=== PATIENT | female | born 1945 | race Caucasian/White ===

== ENCOUNTER 2017-09-16 08:53 | Day surgery (SDC) | payer MEDICARE, BC ==
[~2017-09-16] VITALS: Ht 165.1 cm; Wt 73.6 kg
[~2017-09-16 08:53] MED LIST: ASPI81CH PO; CITA20 PO; LISINOPRIL PO; MAGNESIUM250 MG PO; PRAV10 PO; PRAV20 PO; RANI150 PO; [UNRECOGNIZED DRUG - OTHER] PO
== END 2017-09-16 10:56 | disposition home or self-care (01) ==
LOC: ORSCSDS 08:53
PROVIDERS: Surgery
PROC: 0DJD8ZZ Inspection of Lower Intestinal Tract, Via Natural or Artificial Opening Endoscopic (ICD-10-PCS; principal; 2017-09-16 10:15)
DX: Z12.11 Encounter for screening for malignant neoplasm of colon (principal); K57.30 Diverticulosis of large intestine without perforation or abscess without bleeding; Z80.0 Family history of malignant neoplasm of digestive organs; E78.5 Hyperlipidemia, unspecified; I10 Essential (primary) hypertension; Z86.010 Personal history of colon polyps; Z79.899 Other long term (current) drug therapy
CPT/HCPCS: J7120

== ENCOUNTER 2019-03-24 18:18 | Emergency (ER) | payer MEDICARE, BC ==
[~2019-03-24] VITALS: Ht 165.1 cm; Wt 72.6 kg
[~2019-03-24 18:18] MED LIST changes: -LISINOPRIL PO; +Lisinopril2.5 MG PO; -PRAV10 PO
[2019-03-24 19:03] LABS: BASOPHILS ABSOLUTE AUTO 0.01 K/mm3 (0.00-0.23); BASOPHILS PERCENT AUTO 0 % (0-2); EOSINOPHILS ABSOLUTE AUTO 0.01 K/mm3 (0.00-0.68); EOSINOPHILS PERCENT AUTO 0 % (0-6); Hematocrit 37.6 % (33.0-51.0); Hemoglobin 12.1 g/dL (11.5-16.0); IMMATURE GRAN ABSOLUTE AUTO 0.04 K/mm3 (0.00-0.10); IMMATURE GRAN PERCENT AUTO 1 % (0-1); LYMPHOCYTES ABSOLUTE AUTO 1.84 K/mm3 (0.84-5.20); LYMPHOCYTES PERCENT AUTO 35 % (21-46); MONOCYTES ABSOLUTE AUTO 0.47 K/mm3 (0.16-1.47); MONOCYTES PERCENT AUTO 9 % (4-13); Mean Corpuscular HGB 27.6 pg (26.0-34.0); Mean Corpuscular HGB Conc 32.2 g/dL (31.5-36.5); Mean Corpuscular Volume 86 fL (80-100); NEUTROPHILS PERCENT AUTO 55 % (41-73); Platelet Count 108 K/mm3 (150-400); RDW Coefficient Variation 13.8 % (11.7-14.2); RDW Standard Deviation 42.8 fL (35.1-46.3); Red Blood Cell Count 4.38 M/mm3 (3.80-5.20); White Blood Cell Count 5.27 K/mm3 (4.00-11.30)
[2019-03-24 19:15] LABS: Alanine Aminotransfer (ALT/SGP 16 U/L (12-78); Albumin/Globulin Ratio 1.2 (0.8-1.8); Alk Phos 49 U/L (50-136); Anion Gap 5 mmol/L (6-16); Aspartate Aminotrans (AST/SGOT 12 U/L (12-37); Bilirubin, Total 0.5 mg/dL (0.1-1.0); Blood Urea Nitrogen 19 mg/dL (8-24); Bun/Creatinine Ratio 21.6 (12.0-20.0); CO2, Blood 27 mmol/L (21-32); Calcium, Blood 9.3 mg/dL (8.5-10.1); Chloride, Blood 107 mmol/L (98-108); Creatinine, Blood 0.88 mg/dL (0.40-1.00); Globulin, Blood 3.2 g/dL (2.2-4.0); Glomerular Filtration Rate >60 (60-); Glucose, Blood 111 mg/dL (70-99); Potassium, Blood 3.5 mmol/L (3.5-5.5); Sodium, Blood 139 mmol/L (136-145); Total Protein, Blood 7.2 g/dL (6.4-8.2); Troponin I <0.015 ng/mL (0.000-0.040)
[2019-03-24] MEDS ORDERED: OMEPRAZOLE20 MG PO (20:14)
== END 2019-03-24 22:30 | disposition home or self-care (01) ==
LOC: ER 18:18
PROVIDERS: Physician Assistant
DX: R55 Syncope and collapse (principal); I10 Essential (primary) hypertension; Z88.2 Allergy status to sulfonamides; Z88.8 Allergy status to other drugs, medicaments and biological substances; Z79.899 Other long term (current) drug therapy; K21.9 Gastro-esophageal reflux disease without esophagitis; R07.89 Other chest pain
CPT/HCPCS: 36415; 71046; 80053; 84484; 85025; 93005; 93010; 96361; 96374; 99284-25; J7030

== ENCOUNTER → 2019-04-28 | Outpatient (CLI) | payer MEDICARE, BC ==
[~2019-04-28] MED LIST changes: +OMEPRAZOLE20 MG PO
== END | disposition home or self-care (01) ==
LOC: LAB SHORT 15:46 → LAB EV 15:46
DX: N39.0 Urinary tract infection, site not specified (principal)
CPT/HCPCS: 87077; 87086; 87186

== ENCOUNTER → 2019-08-08 | Outpatient (CLI) | payer MEDICARE, BC ==
[2019-08-08 15:44] LABS: BASOPHILS ABSOLUTE AUTO 0.02 K/mm3 (0.00-0.23); BASOPHILS PERCENT AUTO 0 % (0-2); EOSINOPHILS ABSOLUTE AUTO 0.01 K/mm3 (0.00-0.68); EOSINOPHILS PERCENT AUTO 0 % (0-6); Hematocrit 37.8 % (33.0-51.0); Hemoglobin 12.2 g/dL (11.5-16.0); IMMATURE GRAN ABSOLUTE AUTO 0.02 K/mm3 (0.00-0.10); IMMATURE GRAN PERCENT AUTO 0 % (0-1); LYMPHOCYTES ABSOLUTE AUTO 2.17 K/mm3 (0.84-5.20); LYMPHOCYTES PERCENT AUTO 48 % (21-46); MONOCYTES ABSOLUTE AUTO 0.47 K/mm3 (0.16-1.47); MONOCYTES PERCENT AUTO 10 % (4-13); Mean Corpuscular HGB 26.7 pg (26.0-34.0); Mean Corpuscular HGB Conc 32.3 g/dL (31.5-36.5); Mean Corpuscular Volume 83 fL (80-100); NEUTROPHILS ABSOLUTE AUTO 1.87 K/mm3 (1.96-9.15); NEUTROPHILS PERCENT AUTO 41 % (41-73); RDW Coefficient Variation 14.2 % (11.7-14.2); RDW Standard Deviation 42.2 fL (35.1-46.3); Red Blood Cell Count 4.57 M/mm3 (3.80-5.20); White Blood Cell Count 4.56 K/mm3 (4.00-11.30)
[2019-08-08 15:56] LABS: Alanine Aminotransfer (ALT/SGP 17 U/L (12-78); Albumin/Globulin Ratio 1.1 (0.8-1.8); Alk Phos 55 U/L (40-126); Anion Gap 9 mmol/L (6-16); Aspartate Aminotrans (AST/SGOT 18 U/L (12-37); Bilirubin, Total 0.4 mg/dL (0.1-1.0); Blood Urea Nitrogen 17 mg/dL (8-24); Bun/Creatinine Ratio 18.3 (12.0-20.0); CO2, Blood 25 mmol/L (21-32); CPK Creatine Kinase 106 U/L (26-192); Calcium, Blood 9.2 mg/dL (8.5-10.1); Chloride, Blood 106 mmol/L (98-108); Creatinine, Blood 0.93 mg/dL (0.40-1.00); Globulin, Blood 3.6 g/dL (2.2-4.0); Glomerular Filtration Rate 59 (60-); Glucose, Blood 114 mg/dL (70-99); Potassium, Blood 3.6 mmol/L (3.5-5.5); Sodium, Blood 140 mmol/L (136-145); Total Protein, Blood 7.6 g/dL (6.4-8.2)
[2019-08-08 15:57] LABS: Troponin I <0.017 ng/mL (0.000-0.040)
[2019-08-08 16:34] LABS: Mean Platelet Volume 14.9 fL (9.1-12.4); Platelet Count 123 K/mm3 (150-400)
== END | disposition home or self-care (01) ==
LOC: LAB EV 15:37 → LAB SHORT 15:37
PROVIDERS: General Practice
DX: I10 Essential (primary) hypertension (principal)
CPT/HCPCS: 80053; 82550; 84484; 85025; 85379

== ENCOUNTER → 2019-08-17 | Outpatient (CLI) | payer MEDICARE, BC | END | disposition home or self-care (01) | LOC: LAB SHORT 07:50 → PLD 07:50 | DX: D22.4 Melanocytic nevi of scalp and neck (principal) | CPT/HCPCS: 88305 ==

== ENCOUNTER → 2020-08-24 | Outpatient (CLI) | payer MEDICARE, BC | END | disposition home or self-care (01) | LOC: LAB SHORT 14:45 → LAB 14:45 | DX: D47.3 Essential (hemorrhagic) thrombocythemia (principal); D70.9 Neutropenia, unspecified; E53.8 Deficiency of other specified B group vitamins; R76.8 Other specified abnormal immunological findings in serum; Z72.53 High risk bisexual behavior | CPT/HCPCS: 82607; 82746; 86803 ==

== ENCOUNTER → 2022-01-15 | Outpatient (CLI) | payer MEDICARE, BC ==
[2022-01-15 20:28] LABS: Percent Saturation 23.2 % (15.0-50.0)
== END | disposition home or self-care (01) ==
LOC: LAB SHORT 11:38 → LAB 11:38
PROVIDERS: Internal Medicine Hematology & Oncology
DX: D46.9 Myelodysplastic syndrome, unspecified (principal)
CPT/HCPCS: 82728; 83540; 83550

== ENCOUNTER → 2022-09-19 | Outpatient (CLI) | payer MEDICARE, BC | END | disposition home or self-care (01) | LOC: LAB SHORT 16:57 | DX: E53.8 Deficiency of other specified B group vitamins (principal) | CPT/HCPCS: 82607; 82746 ==

== ENCOUNTER 2022-11-04 15:31 | Inpatient (IN) | payer MEDICARE, BC ==
[~2022-11-04] VITALS: Ht 165.1 cm; Wt 73.5 kg
[2022-11-04] VITALS (12 sets, daily range): BP systolic 83–170; BP diastolic 64–123
[~2022-11-04 15:31] MED LIST changes: -BUDESONIDE-FO10.2 G3 INH; -CARVEDILOL3.125 MG PO; -FAMO10; -FURO20 PO; -GUAI600T33 PO; -HIGH POTENCY P1 EAC2 PO; -IRBESARTAN150 M3 PO; -LEVFLO500 PO; -PRAV20; -SPIR25 PO
[2022-11-04 16:55] LABS: Prothrombin Time Results 10.5 Sec (9.7-11.5)
[2022-11-04 17:27] LABS: Anti-Xa UFH, PHA Monitoring <0.10 IU/mL
[2022-11-04] MEDS ORDERED: IRBESARTAN150 M3 PO (17:32)
[2022-11-04] MEDS ORDERED: PRAV20 (17:32)
[2022-11-04] MEDS ORDERED: CARVEDILOL3.125 MG PO (17:33)
[2022-11-04] MEDS ORDERED: FAMO10 (17:33)
--- NOTE | 2022-11-04 20:00 | NUR ---
ARRIVAL TO [facility] PT ARRIVED PT [facility] AT APPROXIMATELY 1950. PT TRANSFERED FROM [facility] TO HOSPITAL BED WITH SBA. PT AMBULATED TO [facility] SBA AND POLE MANAGEMENT, CONTINENT OF URINE. PT ARRIVED ON RA, SpO2 87%, PT DENIED SOB. PLACED PT ON 3L VIA NC, SpO2> 92%. BP STABLE, PT ONLY REPORTED MILD CP/SOB WHEN AMBULATING TO BATHROOM, SUBSIDED WITHOUT INTERVENTION, SpO2 REMAINED> 92%. SR-ST 90-100's. LUNGS COARSE AND WHEEZEY THROUGHOUT, REQUESTED BREATHING TREATMENT FROM RT. PT A&Ox4, COMMUNCIATES NEEDS APPROPRIATELY, ORIENTED TO CALL LIGHT/UNIT, BED IN LOWEST POSTION, CALL LIGHT IN REACH.
--- NOTE | 2022-11-04 21:30 | NUR ---
UPDATE AT APPROXIMATELY 2130, SpO2 BEGAN DROPPING, INCREASED O2 FLOW, CALLED RT. SpO2 NOT RESPONDING, RR AND WORK OF BREATHING ELEVATED, PT DIAPHORETIC. INCREASED TO 15L HIGH FLOW NC, SpO2 DROPPING TO 77%, PLACED NRB OVER 15L HIGH FLOW NC. PT DENIES CP/PRESSURE, BP ELEVATED WITH SBP 160-170's, SINUS TACH 120's. RT AND PHYSICIANS AT BEDSIDE. INSTRUCTED TO STOP FLUIDS. ORDERS PLACED. RT SETTING UP V60 BIPAP. SpO2> 92% AFTER PT PUT ON BIPAP.
[2022-11-04 21:46] LABS: PCO2 Arterial 41.1 mmHg (35-45); PO2 Arterial 86.2 mmHg (80-100)
[2022-11-04 21:47] LABS: pH Blood Arterial 7.27 (7.35-7.45)
[2022-11-05] VITALS (37 sets, daily range): BP systolic 71–128; BP diastolic 52–113
--- NOTE | 2022-11-05 01:30 | NUR ---
UPDATE PT's MAP 60's, PT VERY LETHARGIC, AND RETAINING URINE. NOTIFIED PHYSICIAN, ORDERS PLACED. PHYSICIAN INSTRUCTED TO PLACE INDWELLING OSPINA CATH RATHER THAN STRAIGHT CATH D/T PT STATUS.
[2022-11-05 01:59] LABS: Source, Urine Foley catheter
[2022-11-05 02:07] LABS: Appearance, Urine Clear (Clear); Bilirubin, Urine Neg (Neg); Blood, Urine 1+ (Neg); Color, Urine Yellow (P-Yellow); Glucose Qualitative, Urine 1+ (Neg); Ketones, Urine Neg (Neg); Leukocyte Esterase, Urine Neg (Neg); Nitrite, Urine Neg (Neg); Protein, Urine Neg (Neg); Urobilinogen, Urine NORM (Normal)
[2022-11-05 02:24] LABS: Bacteria Rare /hpf; Red Blood Cells, Urine 0-2 /hpf (0-2); Squamous Epithelial Cells Rare /hpf (Few); White Blood Cells, Urine 0-2 /hpf (0-5)
[2022-11-05 02:34] LABS: PCO2 Arterial 36.3 mmHg (35-45); PO2 Arterial 105 mmHg (80-100); pH Blood Arterial 7.39 (7.35-7.45)
[2022-11-05 02:38] LABS: BASOPHILS ABSOLUTE AUTO 0.01 K/mm3 (0.00-0.23); BASOPHILS PERCENT AUTO 0 % (0-2); EOSINOPHILS ABSOLUTE AUTO 0.01 K/mm3 (0.00-0.68); EOSINOPHILS PERCENT AUTO 0 % (0-6); Hematocrit 38.5 % (33.0-51.0); Hemoglobin 12.6 g/dL (11.5-16.0); IMMATURE GRAN ABSOLUTE AUTO 0.02 K/mm3 (0.00-0.10); IMMATURE GRAN PERCENT AUTO 0 % (0-1); LYMPHOCYTES ABSOLUTE AUTO 1.05 K/mm3 (0.84-5.20); LYMPHOCYTES PERCENT AUTO 16 % (21-46); MONOCYTES ABSOLUTE AUTO 0.19 K/mm3 (0.16-1.47); MONOCYTES PERCENT AUTO 3 % (4-13); Mean Corpuscular HGB Conc 32.7 g/dL (31.5-36.5); Mean Corpuscular Volume 82 fL (80-100); NEUTROPHILS ABSOLUTE AUTO 5.22 K/mm3 (1.96-9.15); NEUTROPHILS PERCENT AUTO 80 % (41-73); Platelet Count 87 K/mm3 (150-400); RDW Standard Deviation 41.9 fL (35.1-46.3); Red Blood Cell Count 4.67 M/mm3 (3.80-5.20)
[2022-11-05 02:52] LABS: Mean Platelet Volume 14.9 fL (9.1-12.4)
[2022-11-05 03:07] LABS: Albumin, Blood 2.9 g/dL (3.4-5.0); Albumin/Globulin Ratio 0.9 (0.8-1.8); Bilirubin, Total 0.6 mg/dL (0.1-1.0); Bun/Creatinine Ratio 24.4 (12.0-20.0); Calcium, Blood 7.9 mg/dL (8.5-10.1); Creatinine, Blood 0.82 mg/dL (0.40-1.00); Globulin, Blood 3.2 g/dL (2.2-4.0); Magnesium, Blood 2.3 mg/dL (1.6-2.4); Phosphorus, Blood 2.2 mg/dL (2.5-4.9); Potassium, Blood 3.5 mmol/L (3.5-5.5); Total Protein, Blood 6.1 g/dL (6.4-8.2)
--- NOTE | 2022-11-05 05:49 | NUR ---
SHIFT SUMMARY SEE PREVIOUS NOTES. PT A&Ox4, VERY LETHARGIC. OPENS EYES TO VERBAL STIMULI OR TOUCH, WILL ANSWER SIMPLE QUESTIONS AND FALL BACK ASLEEP. BP SOFT WITH SBP 80's, MAP 65-70. PHYSICIAN AWARE, ASSESSED PT AT BEDSIDE AFTER BEING NOTIFIED OF SOFT BP AND LETHARGY, NO NEW ORDERS. SpO2> 92% ON BIPAP 14/8 30% FiO2. SINUS 70's. HEPARIN gtt @ 14units/hr. OSPINA CATH IN PLACE PER PHYSICIAN ORDER, PATENT, DRAINING CLEAR/PALE YELLOW URINE TO GRAVITY. NO OTHER EVENTS, WILL REPORT TO ONCOMING RN.
--- NOTE | 2022-11-05 11:58 | NUR ---
"Spiritual Care | Pt. Request Pt. is sitting up in a recliner when she welcomes my visit. Pt. is pleasant and is only slightly unsettled about the results of tests on her heart. Pt. verbalizes an expectation of having results from an angiogram tomorrow. Facilitated a substantial life review, with a focus on Pts. symptoms leading to her hospital admission. Listen with interest and empathy and establish rapport. Pt. verbalized gratitude for the spiritual care visit and displays evidence of engagement and awareness. Pt. welcomed this bed control specialist to return."
--- NOTE | 2022-11-05 17:42 | NUR ---
SHIFT SUMMARY; ASSUMED CARE AT 0700. ON BIPAP AT START OF SHIFT. ARROUSABLE TO VOICE, ANSWERS QUESTIONS. BIPAP REMOVED AND PLACED ON 4L 02 VIA NC TITRATED DOWN TO 1L WITH MAINTAINING SATS OF 94%. A/A/OX4 FOR REMAINDER OF SHIFT. UP TO CHAIR IN ROOM WITH SBA. HEPARIN INFUSING AT 10UNITS/KG. CARDIOLOGY CONSULT IN PM, WILL PLAN FOR ANGIO TONIGHT, TO REMAIN NPO. WILL CONTINUE TO MONITOR AND TREAT UNTIL CHANGE OF SHIFT.
--- NOTE | 2022-11-05 19:30 | NUR ---
BACK FROM [facility] PT BACK FROM [facility] AT APPROXIMATELY 1930. RECEIVED REPORT FROM [facility] RN AT BEDSIDE. ASSESSED R RADIAL SITE WITH [facility] RN. TR BAND AND ARMBOARD IN PLACE. SMALL, MILD FIRMNESS DIRECTED DISTAL FROM TR BAND. PT DENIES TENDERNESS. NO BRUISING OR BLEEDING. SpO2> 92% ON R INDEX FINGER, RA. VSS.
[2022-11-06] VITALS (11 sets, daily range): BP systolic 82–147; BP diastolic 52–73
--- NOTE | 2022-11-06 00:20 | NUR ---
TR BAND RECOVERY REPORT [facility] RN THAT 10mLs PUT IN TR BAND AT 1910. BEGAN DEFLATING TR BAND AT 2114. SMALL, MILD FIRMNESS DIRECTED DISTAL FROM TR BAND. PT DENIES TENDERNESS. NO BRUISING OR BLEEDING. SpO2> 92% ON R INDEX FINGER, RA. 1mL REMOVED @ 2114: SMALL, MILD FIRMNESS DIRECTED DISTAL FROM TR BAND, UNCHANGED. PT DENIES TENDERNESS. NO BRUISING OR BLEEDING. SpO2> 92% ON R INDEX FINGER, RA. ARM BOARD IN PLACE. 1mL REMOVED @ 2134: SMALL, MILD FIRMNESS DIRECTED DISTAL FROM TR BAND, UNCHANGED. PT DENIES TENDERNESS. NO BRUISING OR BLEEDING. SpO2> 92% ON R INDEX FINGER, RA. ARM BOARD IN PLACE. 1mL REMOVED @ 2149: SMALL, MILD FIRMNESS DIRECTED DISTAL FROM TR BAND, UNCHANGED. PT DENIES TENDERNESS. NO BRUISING OR BLEEDING. SpO2> 92% ON R INDEX FINGER, RA. ARM BOARD IN PLACE. 1mL REMOVED @ 2210: SMALL, MILD FIRMNESS DIRECTED DISTAL FROM TR BAND, UNCHANGED. PT DENIES TENDERNESS. NO BRUISING OR BLEEDING. SpO2> 92% ON R INDEX FINGER, RA. ARM BOARD IN PLACE. 1mL REMOVED @ 2225: SMALL, MILD FIRMNESS DIRECTED DISTAL FROM TR BAND, UNCHANGED. PT DENIES TENDERNESS. NO BRUISING OR BLEEDING. SpO2> 92% ON R INDEX FINGER, RA. ARM BOARD IN PLACE. 1mL REMOVED @ 2240: SMALL, MILD FIRMNESS DIRECTED DISTAL FROM TR BAND, UNCHANGED. PT DENIES TENDERNESS. NO BRUISING OR BLEEDING. SpO2> 92% ON R INDEX FINGER, RA. ARM BOARD IN PLACE. 1mL REMOVED @ 2255: SMALL, MILD FIRMNESS DIRECTED DISTAL FROM TR BAND, UNCHANGED. PT DENIES TENDERNESS. NO BRUISING OR BLEEDING. SpO2> 92% ON R INDEX FINGER, RA. ARM BOARD IN PLACE. 1mL REMOVED @ 2315: SMALL, MILD FIRMNESS DIRECTED DISTAL FROM TR BAND, UNCHANGED. PT DENIES TENDERNESS. NO BRUISING OR BLEEDING. SpO2> 92% ON R INDEX FINGER, RA. BAND NOW EMPTY AFTER REMOVING A TOTAL OF 8mLs. ARM BOARD IN PLACE. REMOVED TR BAND AT 0015. FIRMNESS REMAINED UNCHANGED. NO BRUISING OR BLEEDING. PT DENIES TENDERNESS. CLEANED SITE WITH CHLORHEXIDINE, APPLIED SKIN PREP AND TEGADERM. ARM BOARD IN PLACE.
--- NOTE | 2022-11-06 05:29 | NUR ---
SHIFT SUMMARY SEE PREVIOUS NOTES. PT A&Ox4, CALLS AND COMMUNICATES NEEDS APPROPRIATELY. BP SOFT, ASYMPTOMATIC, SINUS 70's, DENIES CP/PRESSURE. SpO2> 92% RA, DENIES SOB. R RADIAL SITE REMAINS UNCHANGED. OSPINA CATH IN PLACE, PATENT, DRAINING TO GRAVITY. 1 ASSIST FOR TRANSFERS. NO OTHER EVENTS, WILL REPORT TO ON COMING RN.
[2022-11-06 08:33] LABS: BASOPHILS PERCENT AUTO 0 % (0-2); EOSINOPHILS PERCENT AUTO 0 % (0-6); Hematocrit 31.2 % (33.0-51.0); Hemoglobin 10.5 g/dL (11.5-16.0); IMMATURE GRAN ABSOLUTE AUTO 0.06 K/mm3 (0.00-0.10); IMMATURE GRAN PERCENT AUTO 1 % (0-1); LYMPHOCYTES ABSOLUTE AUTO 1.14 K/mm3 (0.84-5.20); LYMPHOCYTES PERCENT AUTO 11 % (21-46); MONOCYTES ABSOLUTE AUTO 0.44 K/mm3 (0.16-1.47); MONOCYTES PERCENT AUTO 4 % (4-13); Mean Corpuscular HGB 27.7 pg (26.0-34.0); Mean Corpuscular HGB Conc 33.7 g/dL (31.5-36.5); Mean Corpuscular Volume 82 fL (80-100); NEUTROPHILS ABSOLUTE AUTO 8.61 K/mm3 (1.96-9.15); NEUTROPHILS PERCENT AUTO 84 % (41-73); Platelet Count 89 K/mm3 (150-400); RDW Coefficient Variation 14.3 % (11.7-14.2); RDW Standard Deviation 42.5 fL (35.1-46.3); Red Blood Cell Count 3.79 M/mm3 (3.80-5.20); White Blood Cell Count 10.25 K/mm3 (4.00-11.30)
[2022-11-06 08:40] LABS: Bun/Creatinine Ratio 33.3 (12.0-20.0); Creatinine, Blood 0.81 mg/dL (0.40-1.00); Potassium, Blood 3.8 mmol/L (3.5-5.5)
--- NOTE | 2022-11-06 16:06 | NUR ---
THIS NURSE IS ASSUMING CARE NOW AFTER RECIEVEING REPORT FROM JANNA MOONEY IN PCU. PATIENT WAS WHEELCHAIRED OVER FROM PCU WITH HER PERSONAL ITEMS. PATIENT WAS AN SBA FROM WHEELCHAIR TO BED. PATIENT IS LAYING IN BED WITH CALL LIGHT IN REACH.
[2022-11-06 17:33] LABS: Influenza A, PCR NEGATIVE (NEGATIVE); Influenza B, PCR NEGATIVE (NEGATIVE); Resp Syncytial Virus, PCR NEGATIVE (NEGATIVE); SARS-Cov-2 (COVID-19) PCR, MMC NEGATIVE (NEGATIVE)
[2022-11-06 17:44] LABS: Source, Urine Clean Catch
[2022-11-06 17:50] LABS: Appearance, Urine Clear (Clear); Bilirubin, Urine Neg (Neg); Blood, Urine Neg (Neg); Glucose Qualitative, Urine Neg (Neg); Ketones, Urine Neg (Neg); Leukocyte Esterase, Urine Neg (Neg); Nitrite, Urine Neg (Neg); Protein, Urine Neg (Neg); Specific Gravity, Urine 1.015 (1.003-1.022); Urobilinogen, Urine NORM (Normal)
[2022-11-06 17:59] LABS: Color, Urine Pale Yellow (P-Yellow)
--- NOTE | 2022-11-07 04:21 | NUR ---
SUMMARY PATIENT IS AOX4, PLEASANT AND COOPERATIVE. REPORTS NO CHEST PAIN THIS SHIFT. R RADIAL SITE WNL. TELE IN PLACE WITH SR @79. VOIDING WITH SBA TO BATHROOM. CALLS APPROPRIATELY. AWAITING POSSIBLE PULMONOLOGY CONSULT PER DR. HERNANDEZ NOTE. WILL REPORT TO DAY RN.
[2022-11-07 04:39] VITALS: BP 137/76
[2022-11-07 05:15] LABS: BASOPHILS ABSOLUTE AUTO 0.01 K/mm3 (0.00-0.23); BASOPHILS PERCENT AUTO 0 % (0-2); EOSINOPHILS PERCENT AUTO 0 % (0-6); Hematocrit 31.1 % (33.0-51.0); Hemoglobin 10.3 g/dL (11.5-16.0); IMMATURE GRAN ABSOLUTE AUTO 0.11 K/mm3 (0.00-0.10); IMMATURE GRAN PERCENT AUTO 1 % (0-1); LYMPHOCYTES ABSOLUTE AUTO 1.06 K/mm3 (0.84-5.20); LYMPHOCYTES PERCENT AUTO 10 % (21-46); MONOCYTES ABSOLUTE AUTO 0.36 K/mm3 (0.16-1.47); MONOCYTES PERCENT AUTO 3 % (4-13); Mean Corpuscular HGB 27.1 pg (26.0-34.0); Mean Corpuscular HGB Conc 33.1 g/dL (31.5-36.5); Mean Corpuscular Volume 82 fL (80-100); NEUTROPHILS ABSOLUTE AUTO 9.31 K/mm3 (1.96-9.15); NEUTROPHILS PERCENT AUTO 86 % (41-73); Platelet Count 96 K/mm3 (150-400); RDW Coefficient Variation 14.4 % (11.7-14.2); RDW Standard Deviation 41.7 fL (35.1-46.3); White Blood Cell Count 10.85 K/mm3 (4.00-11.30)
[2022-11-07 05:35] LABS: Alanine Aminotransfer (ALT/SGP 18 U/L (12-78); Albumin, Blood 2.9 g/dL (3.4-5.0); Alk Phos 40 U/L (50-136); Anion Gap 6 mmol/L (6-16); Aspartate Aminotrans (AST/SGOT 21 U/L (12-37); Bilirubin, Total 0.4 mg/dL (0.1-1.0); Blood Urea Nitrogen 37 mg/dL (8-24); Bun/Creatinine Ratio 38.7 (12.0-20.0); C-REACTIVE PROTEIN, EXT RANGE <0.290 mg/dL (0.000-0.300); CO2, Blood 25 mmol/L (21-32); Calcium, Blood 8.2 mg/dL (8.5-10.1); Chloride, Blood 111 mmol/L (98-108); Creatinine, Blood 0.96 mg/dL (0.40-1.00); Globulin, Blood 2.9 g/dL (2.2-4.0); Glomerular Filtration Rate 61 (60-); Glucose, Blood 159 mg/dL (70-99); Potassium, Blood 3.7 mmol/L (3.5-5.5); Sodium, Blood 142 mmol/L (136-145); Total Protein, Blood 5.8 g/dL (6.4-8.2)
[2022-11-07 07:12] VITALS: BP 133/76
[2022-11-07] MEDS ORDERED: PRAV20 PO (09:19)
[2022-11-07] MEDS ORDERED: ASPI81CH PO (09:20)
[2022-11-07] MEDS ORDERED: GUAI600T33 PO (09:21)
[2022-11-07] MEDS ORDERED: HIGH POTENCY P1 EAC2 PO (09:22)
[2022-11-07] MEDS ORDERED: BUDESONIDE-FO10.2 G3 INH (09:25)
[2022-11-07] MEDS ORDERED: FURO20 PO (09:26)
[2022-11-07] MEDS ORDERED: LEVFLO500 PO (09:28)
[2022-11-07] MEDS ORDERED: SPIR25 PO (09:29)
--- NOTE | 2022-11-07 14:52 | NUR ---
DISCHARGE SUMMARY S/P NSTEMI, A/OX4, VSS, TOLERATING PO, INDEPENDENT IN THE ROOM. DISCUSSED DISCHARGE INSTRUCTIONS WITH THE PATIENT INCLUDING HOME CARE, MEDICATIONS, AND FOLLOW UP APPOINTMENTS, IV ACCESS REMOVED AND NO OTHER DEVICES IN PLACE AT TIME OF DISCHARGE. PATIENT ESCORTED OUT VIA WC TO PRIVATE AUTO TO GO HOME.
== END 2022-11-07 10:00 | disposition home or self-care (01) | DRG 194 ==
LOC: ER 15:31 → SURS 17:37 → PCU 17:37 → SURS 11-06 16:05
PROVIDERS: Internal Medicine; Nurse Practitioner Acute Care; Student in an Organized Health Care Education/Training Program; ADMIT Hospitalist
PROC: 4A033R1 Measurement of Arterial Saturation, Peripheral, Percutaneous Approach (ICD-10-PCS; principal; 2022-11-05)
PROC: 4A023N7 Measurement of Cardiac Sampling and Pressure, Left Heart, Percutaneous Approach (ICD-10-PCS; 2022-11-05)
PROC: B2151ZZ Fluoroscopy of Left Heart using Low Osmolar Contrast (ICD-10-PCS; 2022-11-05)
DX: J18.0 Bronchopneumonia, unspecified organism (principal); E87.20 Acidosis, unspecified; N17.9 Acute kidney failure, unspecified; I24.8 Other forms of acute ischemic heart disease; E78.5 Hyperlipidemia, unspecified; R79.89 Other specified abnormal findings of blood chemistry; I10 Essential (primary) hypertension; H53.2 Diplopia; K21.9 Gastro-esophageal reflux disease without esophagitis; H81.10 Benign paroxysmal vertigo, unspecified ear; J40 Bronchitis, not specified as acute or chronic; D69.6 Thrombocytopenia, unspecified; D72.819 Decreased white blood cell count, unspecified; D64.9 Anemia, unspecified; Z20.822 Contact with and (suspected) exposure to COVID-19; J30.9 Allergic rhinitis, unspecified; M50.30 Other cervical disc degeneration, unspecified cervical region; Z90.49 Acquired absence of other specified parts of digestive tract; Z98.890 Other specified postprocedural states; Z98.41 Cataract extraction status, right eye; Z90.12 Acquired absence of left breast and nipple; Z88.2 Allergy status to sulfonamides; Z88.8 Allergy status to other drugs, medicaments and biological substances; Z79.899 Other long term (current) drug therapy
CPT/HCPCS: 0241U; 36415; 36600; 71045; 71260; 76937; 80048; 80053; 81001; 81003; 82803; 83735; 83880; 84100; 84145; 84484; 85025; 85520; 85610; 85651; 85730; 86140; 93005; 93010; 93458; 93880; 93970; 94640; 94660; 94664; 94760; 94762; 96365; 96375; 97116; 97162; 99152; 99153; 99285-25; A9270; C1769; C1887; C8929; J0456; J0696; J1644; J1940; J2250; J2920; J2930; J3010; J3475; J7030; J7040; J7050; Q9957; Q9967

== ENCOUNTER → 2022-11-04 | Outpatient (CLI) | payer MEDICARE, BC ==
[~2022-11-04] MED LIST changes: +BUDESONIDE-FO10.2 G3 INH; +CARVEDILOL3.125 MG PO; +FAMO10; +FURO20 PO; +GUAI600T33 PO; +HIGH POTENCY P1 EAC2 PO; +IRBESARTAN150 M3 PO; +LEVFLO500 PO; +PRAV20; +SPIR25 PO
[2022-11-04 14:44] LABS: Albumin, Blood 3.6 g/dL (3.4-5.0); Bilirubin, Total 0.8 mg/dL (0.1-1.0); Bun/Creatinine Ratio 22.2 (12.0-20.0); Creatinine, Blood 1.08 mg/dL (0.40-1.00); Globulin, Blood 3.6 g/dL (2.2-4.0); Potassium, Blood 3.9 mmol/L (3.5-5.5); Total Protein, Blood 7.2 g/dL (6.4-8.2)
[2022-11-04 15:47] LABS: BASOPHILS ABSOLUTE AUTO 0.02 K/mm3 (0.00-0.23); BASOPHILS PERCENT AUTO 0 % (0-2); EOSINOPHILS PERCENT AUTO 0 % (0-6); Hematocrit 39.3 % (33.0-51.0); Hemoglobin 13.1 g/dL (11.5-16.0); IMMATURE GRAN ABSOLUTE AUTO 0.11 K/mm3 (0.00-0.10); IMMATURE GRAN PERCENT AUTO 1 % (0-1); LYMPHOCYTES ABSOLUTE AUTO 2.04 K/mm3 (0.84-5.20); LYMPHOCYTES PERCENT AUTO 20 % (21-46); MONOCYTES ABSOLUTE AUTO 1.06 K/mm3 (0.16-1.47); MONOCYTES PERCENT AUTO 11 % (4-13); Mean Corpuscular HGB 27.5 pg (26.0-34.0); Mean Corpuscular HGB Conc 33.3 g/dL (31.5-36.5); Mean Corpuscular Volume 82 fL (80-100); NEUTROPHILS ABSOLUTE AUTO 6.76 K/mm3 (1.96-9.15); NEUTROPHILS PERCENT AUTO 68 % (41-73); Platelet Count 116 K/mm3 (150-400); RDW Coefficient Variation 14.2 % (11.7-14.2); RDW Standard Deviation 41.8 fL (35.1-46.3); Red Blood Cell Count 4.77 M/mm3 (3.80-5.20); White Blood Cell Count 9.99 K/mm3 (4.00-11.30)
== END | disposition home or self-care (01) ==
LOC: LAB SHORT 14:27 → LAB 14:27
PROVIDERS: Physician Assistant Medical
DX: R42 Dizziness and giddiness (principal)
CPT/HCPCS: 80053; 83880; 84484; 85025

== ENCOUNTER → 2023-03-15 | Outpatient (CLI) | payer MEDICARE, BC ==
[~2023-03-15] MED LIST changes: +BUDESONIDE-FO10.2 G3 INH; +CARVEDILOL3.125 MG PO; +FAMO10; +FURO20 PO; +GUAI600T33 PO; +HIGH POTENCY P1 EAC2 PO; +IRBESARTAN150 M3 PO; +LEVFLO500 PO; +PRAV20; +SPIR25 PO
== END | disposition home or self-care (01) ==
LOC: LAB 13:56 → LAB SHORT 13:56
DX: R35.0 Frequency of micturition (principal)
CPT/HCPCS: 87086

== ENCOUNTER → 2023-03-15 | Outpatient (CLI) | payer MEDICARE, BC ==
[2023-03-15 14:37] LABS: Albumin/Globulin Ratio 1.1 (0.8-1.8); Bilirubin, Total 0.5 mg/dL (0.1-1.0); Bun/Creatinine Ratio 16.9 (12.0-20.0); Calcium, Blood 9.2 mg/dL (8.5-10.1); Creatinine, Blood 0.89 mg/dL (0.40-1.00); Globulin, Blood 3.5 g/dL (2.2-4.0); Potassium, Blood 3.6 mmol/L (3.5-5.5); Total Protein, Blood 7.5 g/dL (6.4-8.2)
[2023-03-15 14:41] LABS: BASOPHILS ABSOLUTE AUTO 0.02 K/mm3 (0.00-0.23); BASOPHILS PERCENT AUTO 0 % (0-2); EOSINOPHILS ABSOLUTE AUTO 0.01 K/mm3 (0.00-0.68); EOSINOPHILS PERCENT AUTO 0 % (0-6); Hematocrit 34.6 % (33.0-51.0); Hemoglobin 11.3 g/dL (11.5-16.0); IMMATURE GRAN ABSOLUTE AUTO 0.02 K/mm3 (0.00-0.10); IMMATURE GRAN PERCENT AUTO 0 % (0-1); LYMPHOCYTES ABSOLUTE AUTO 1.85 K/mm3 (0.84-5.20); LYMPHOCYTES PERCENT AUTO 40 % (21-46); MONOCYTES ABSOLUTE AUTO 0.56 K/mm3 (0.16-1.47); MONOCYTES PERCENT AUTO 12 % (4-13); Mean Corpuscular HGB 26.8 pg (26.0-34.0); Mean Corpuscular HGB Conc 32.7 g/dL (31.5-36.5); Mean Corpuscular Volume 82 fL (80-100); NEUTROPHILS ABSOLUTE AUTO 2.15 K/mm3 (1.96-9.15); NEUTROPHILS PERCENT AUTO 47 % (41-73); Platelet Count 124 K/mm3 (150-400); RDW Coefficient Variation 14.4 % (11.7-14.2); RDW Standard Deviation 43.3 fL (35.1-46.3); Red Blood Cell Count 4.21 M/mm3 (3.80-5.20); White Blood Cell Count 4.61 K/mm3 (4.00-11.30)
== END | disposition home or self-care (01) ==
LOC: LAB 13:06 → LAB SHORT 13:06
PROVIDERS: Physician Assistant
DX: R10.31 Right lower quadrant pain (principal); R07.9 Chest pain, unspecified
CPT/HCPCS: 80053; 84484; 85025